=== PATIENT | female | born 1990 | race Caucasian/White ===

== ENCOUNTER 2017-09-02 13:04 | Emergency (ER) | payer OTHER, MEDICAID ==
[2017-09-02 13:05] VITALS: BMI 26.6
[2017-09-02 13:22] VITALS: BP 127/71; PULSE 69; RESP 18; TEMP 98.1; O2SAT 99
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
[2017-09-02] MEDS ORDERED: Emtricitabine-Tenofovir 200 mg-300 mg Tab PO STA ×2 (15:24→15:57)
[2017-09-02] MEDS ORDERED: cefTRIAXone (Rocephin) 250 mg Inj IM STA (15:24)
[2017-09-02 15:27] LABS: SQUAMOUS EPITHIAL 16 /hpf (0-5); URINE BACTERIA FEW (<OCC); URINE BILIRUBIN NEGATIVE (NEGATIVE); URINE BLOOD SMALL (NEGATIVE); URINE CLARITY CLOUDY (Clear); URINE COLOR YELLOW (YELLOW); URINE GLUCOSE (UA) NEG (Normal); URINE LEUKOCYTE ESTERASE TRACE Leu/uL (Negative); URINE PROTEIN 100 mg/dL (NEGATIVE); URINE UROBILINOGEN 0.2-1.0 mg/dL (0.2-1.0)
[2017-09-02] MEDS ORDERED: Emtricitabine-Tenofovir 200 mg-300 mg Tab PO NR (15:30)
[2017-09-02 15:42] LABS: BARBITURATES, UR NEGATIVE (NEGATIVE); BENZODIAZEPINES, UR NEGATIVE (NEGATIVE); OPIATES, UR NEGATIVE (NEGATIVE); PHENCYCLIDINE, UR NEGATIVE (NEGATIVE)
[2017-09-02] MEDS ORDERED: cefTRIAXone (Rocephin) 250 mg Inj ONE (15:57)
== END 2017-09-02 16:40 | disposition home or self-care (01) ==
LOC: H.ER 13:04
DX: Z04.41 Encounter for examination and observation following alleged adult rape (principal)
CPT/HCPCS: 80324; 80345; 80346; 80349; 80353; 80358; 80361; 81003; 81025; 83992; 96372; 99284; J0696